=== PATIENT | female | born 1985 | race Asian ===

== ENCOUNTER 2017-10-14 17:37 | Emergency (ER) | payer OTHER ==
[~2017-10-14] VITALS: Ht 165.1 cm; Wt 81.4 kg
[2017-10-14] MEDS ORDERED: ONDANSETRON ODT 4 MG PO ONE (18:00)
[2017-10-14] MEDS ORDERED: ONDANSETRON ODT 4 MG ONE (18:03)
[2017-10-14 18:26] LABS: HEMATOCRIT 46.1 % (34.6-47.8); HEMOGLOBIN 15.9 g/dL (11.7-16.4); WHITE BLOOD COUNT 8.4 x10^3/uL (3.4-10)
[2017-10-14 18:37] LABS: BLOOD UREA NITROGEN 14 mg/dL (7-18)
[2017-10-14 19:00] LABS: PATH.CAST-FLAG NOT PRESENT; SPERM-FLAG NOT PRESENT; SRC-FLAG NOT PRESENT; XTAL-FLAG NOT PRESENT; YLC-FLAG NOT PRESENT
[2017-10-14 19:55] VITALS: BP 122/74
== END 2017-10-14 19:58 | disposition home or self-care (01) ==
LOC: ED 18:53
DX: R11.2 Nausea with vomiting, unspecified (principal); Z87.891 Personal history of nicotine dependence
CPT/HCPCS: 36415; 80048; 81001; 82040; 83690; 84703; 85025; 87086; 99284; Q0162

== ENCOUNTER 2018-05-12 15:04 | Emergency (ER) | payer OTHER ==
[~2018-05-12] VITALS: Ht 162.6 cm; Wt 79.8 kg
[2018-05-12] MEDS ORDERED: ASPIRIN 81 MG TABLET CHEW ONE (15:26)
[2018-05-12] MEDS ORDERED: ASPIRIN 81 MG TABLET CHEW PO ONE (15:30)
[2018-05-12 15:41] LABS: BASOPHILS # (AUTO) 0.05 x10^3/uL (0-0.1); BASOPHILS % (AUTO) 1 % (0-1); EOSINOPHILS # (AUTO) 0.17 x10^3/uL (0-0.4); EOSINOPHILS % (AUTO) 2 % (1-7); LYMPHOCYTES # (AUTO) 2.54 x10^3/uL (1-3.4); LYMPHOCYTES % (AUTO) 32 % (22-44); MD NO; MEAN CORPUSCULAR HEMOGLOBIN 29.9 pg (27.0-34.8); MEAN CORPUSCULAR HGB CONC 33.5 g/dL (32.4-35.8); MEAN CORPUSCULAR VOLUME 89.3 fL (80-100); MEAN PLATELET VOLUME 7.8 fL (7.4-10.4); MONOCYTES # (AUTO) 0.54 x10^3/uL (0.2-0.8); MONOCYTES % (AUTO) 7 % (2-9); NEUTROPHILS # (AUTO) 4.77 x10^3/uL (1.8-6.8); NEUTROPHILS % (AUTO) 59 % (42-75); PLATELET COUNT 348 x10^3/uL (130-400); RED BLOOD COUNT 4.83 x10^6/uL (3.82-5.3); RED CELL DISTRIBUTION WIDTH 13.6 % (9.6-15.2)
[2018-05-12 15:48] LABS: ALBUMIN 3.8 g/dL (3.4-5.0); ANION GAP 8 mmol/L (5-15); CALCIUM 8.3 mg/dL (8.5-10.1); CHLORIDE 107 mmol/L (98-107); CREATININE 0.68 mg/dL (0.55-1.02)
[2018-05-12 15:53] LABS: T4 (THYROXINE) 10.2 mcg/dL (4.8-13.9); TROPONIN I < 0.015 ng/mL (0.000-0.045)
[2018-05-12 15:57] VITALS: BP 127/79
[2018-05-12] MEDS ORDERED: LORazepam 1MG TABLET ONE (16:17)
[2018-05-12] MEDS ORDERED: LORazepam 1MG TABLET PO ONE (16:30)
== END 2018-05-12 16:40 | disposition home or self-care (01) ==
LOC: ED 16:05
DX: R06.00 Dyspnea, unspecified (principal); F41.1 Generalized anxiety disorder; R06.4 Hyperventilation; F17.200 Nicotine dependence, unspecified, uncomplicated
CPT/HCPCS: 36415; 71046; 80048; 82040; 84436; 84443; 84484; 85025; 93005; 99285